=== PATIENT | male | born 1965 | race Caucasian/White ===

== ENCOUNTER 2017-11-03 12:22 | Outpatient (CLI) | payer BC ==
[2017-11-03 14:01] LABS: Bilirubin Negative (Negative); Blood, Urine Negative (Negative); Clarity CLEAR (Clear); Glucose, Urine (Dipstick) Negative (Negative); Leukocyte Small (Negative); Nitrite Negative (Negative); Protein, Urine (Dipstick) Negative (Neg-Trace); Specific Gravity, Urine 1.026 (1.002-1.036); Urobilinogen 0.2 mg/dL (0.2-1.0)
[2017-11-03 14:05] LABS: Bacteria/HPF None Seen HPF (None Seen); Hyaline Casts/LPF 4-6 HYALINE CAST LPF (0-3 Hyaline); Pathc Cast-AUWi Flag 0.43 (0-2.49); Squamous Epithelial 0-3 HPF (0-3); WBC/HPF 0-3 HPF (0-3)
== END 2017-11-03 12:23 | disposition home or self-care (01) ==
LOC: LABBT 12:22
PROVIDERS: ATTEND Orthopaedic Surgery
DX: Z01.818 Encounter for other preprocedural examination (principal); M16.12 Unilateral primary osteoarthritis, left hip
CPT/HCPCS: 81001; 87081; 93005; 93010

== ENCOUNTER 2017-11-03 15:30 | Inpatient (IN) | payer BC ==
[2017-11-15] MEDS ORDERED: CEFAZOLIN/Water 2 GM/20 ML SYRINGE ONE (07:51)
[2017-11-15] MEDS ORDERED: Sodium Chloride 0.9% 100 ML ONE (07:51)
[2017-11-15] MEDS ORDERED: Vancomycin HCl 1.5 GM in Sodium Chloride 0.9% 250 ML 300 ML IVPB SCH ×2 (08:00→21:00)
[2017-11-15] MEDS ORDERED: Midazolam HCl 2 mg/2 ml Vial ONE (08:59)
[2017-11-15] MEDS ORDERED: Fentanyl 100 MCG/2 ML VIAL ONE ×4 (08:59→12:19)
[2017-11-15] MEDS ORDERED: Dexamethasone 4 mg/ml Vial ONE (09:00)
[2017-11-15] MEDS ORDERED: Levofloxacin 500 mg/D5W 100 ml Premix Bag ONE (09:01)
[2017-11-15] MEDS ORDERED: Tranexamic Acid 1,000 MG in Sodium Chloride 0.9% 100 ML IVPB SCH (11:30)
[2017-11-15] MEDS ORDERED: Ketorolac Tromethamine 30 MG/ML VIAL ONE (11:38)
[2017-11-15] MEDS ORDERED: Promethazine HCl 25 MG/ML VIAL IM PRN ×2 (11:42→15:16)
[2017-11-15] MEDS ORDERED: HYDROmorphone 2 MG/ML VIAL SLOW IVP PRN (11:42)
[2017-11-15] MEDS ORDERED: Promethazine HCl 25 MG/ML VIAL SLOW IVP PRN (11:42)
[2017-11-15] MEDS ORDERED: Ondansetron HCl/PF 4 MG/2 ML Vial IVP PRN ×2 (11:42→15:16)
--- NOTE | 2017-11-15 12:27 | OP ---
DATE OF PROCEDURE: 11/15/2017 PREOPERATIVE DIAGNOSIS: Left hip avascular necrosis. POSTOPERATIVE DIAGNOSIS: Left hip avascular necrosis. PROCEDURE PERFORMED: Left total hip arthroplasty. STAFF: Tommy Traylor M.D. METER MAINTENANCE PERSON: Neil Dover PA-C. ANESTHESIA: Michel. The patient received a general intubation and a fascial block. ESTIMATED BLOOD LOSS: 200 mL. TOURNIQUET TIME: None. IMPLANTS: A Jessenia size Accolade TMZF size 5 130 degree neck angle, Trident 10 degree poly, 36 mm, a Tritanium hemispherical cluster shell 58 mm, and a Biolox ceramic 36 mm -5 head. ANTIBIOTICS: Ancef 2 grams, vancomycin 1.5 grams, Levaquin 500 mg, TXA 1 gram. COMPLICATIONS: None. HISTORY OF PRESENT ILLNESS: Mr. Cleaning is a 52-year-old male presenting with left hip pain for over a year. The patient did have a history of previous drinking. The patient has history of high blood pressure. I discussed with patient the risks and benefits of left total hip arthroplasty to include pain, scar, bleeding, infection, damage to vital structures, decreased range of motion or strength, f ailure of procedure, lengthening, rotation, damage to vital structures, need for further surgeries. The patient understood these risks and benefits and would like to proceed. PROCEDURE IN DETAIL: Timeout was performed designating the patient's left lower extremity as the ope rative site based on sight, consents, markings. After completion of timeout, the patient was placed in lateral decubitus position with bony points well padded. The patient's left extremity was prepped and draped in sterile fashion. The patient had a lateral incision made down through skin and IT ban d. Gluteus medius and minimus were cut in line to expose the capsule, T'd and excised the capsule, e xposed the head and dislocated it, had a femoral neck cut the base of our guide after removing some o steophytes. Removed about half fingerbreadth above the lesser trochanter. We moved our attention to the acetabulum, removed osteophytes, found the fovea, started reaming and reamed up to a 57, trialed at 58, felt it would be a good overall alignment. We removed some osteophytes anteriorly to help wi th our positioning and no impingement. We then placed our 58 mm hemispherical cup. We had curetted some cyst which we bone grafted anterior superiorly. After completion of this, we liked the overall alignment of the cup. We placed a 10 mm Trident poly a little posterior superior in angulation, joselin ered into place, made sure no soft tissues was in place. We then moved to the femur. We broached up to size 5, trialed a 5 and a -5 given the patient has a plan for a ceramic head. We then removed, p laced a -5 ceramic head with a size 5 Jessenia stem, reduced into place, reduced the hip. I liked the overall alignment and position. We then placed #2 Vicryls to close the gluteus medius to itself glu teus minimus. We closed the gluteus medius with a couple sutures through the bone as well as soft ti ssue [id number]. We then washed. We then closed the IT band with [id number], we closed the IT band with #2 Quill, 0 Quill, 2-0 Quill, and glue. The patient will be followed up with [place] protocol, will be weightbearing as tolerated. Camille SHARP.
[2017-11-15] MEDS ORDERED: Lidocaine 1% PF 5 ML VIAL ONE (12:47)
[2017-11-15] MEDS ORDERED: Ondansetron HCl/PF 4 MG/2 ML Vial ONE (12:47)
[2017-11-15] MEDS ORDERED: PROPOFOL 200 MG/20 ML VIAL ONE (12:47)
[2017-11-15] MEDS ORDERED: Bupivacaine HCl 0.5%/Epinephrine 1:200,000/PF 30 ml Vial ONE (13:02)
--- NOTE | 2017-11-15 14:04 | RAD ---
LEFT HIP TWO VIEWS: 11/15/2017 HISTORY: Postop total hip replacement. COMPARISON: 10/23/2016 FINDINGS: There have been interval post surgical changes related to placement of a left total hip prosthesis. No hardware complications are seen. No fracture or dislocation is seen. There is a lytic and sclero tic appearance of the superior aspect of the right femoral head, which may be related to osteonecrosi s. There is joint space narrowing seen on the right. Calcifications again overly the right hemipelv is, likely related to phleboliths. IMPRESSION: 1. Osteonecrosis involving the right femoral head. 2. Left total hip prosthesis. POS: [facility]
[2017-11-15] MEDS ORDERED: Ketorolac Tromethamine 30 MG/ML VIAL IVP PRN (15:16)
[2017-11-15] MEDS ORDERED: Acetaminophen 325 MG TAB PO PRN (15:16)
[2017-11-15] MEDS ORDERED: HYDROcodone/Acetaminophen 10/325 mg Tablet PO PRN ×2 (15:16)
[2017-11-15] MEDS ORDERED: Zolpidem Tartrate 5 MG TAB PO PRN (15:16)
[2017-11-15] MEDS ORDERED: traMADol HCl 50 MG TAB PO PRN (15:16)
[2017-11-15] MEDS ORDERED: Fentanyl 100 MCG/2 ML VIAL SLOW IVP PRN ×2 (15:16)
[2017-11-15] MEDS ORDERED: diphenhydrAMINE 25 MG CAP PO PRN (15:16)
[2017-11-15] MEDS: Sodium Chloride 0.9% 1,000 ML IV SCH (16:16)
[2017-11-15] MEDS ORDERED: hydrALAZINE 20 MG/ML VIAL SLOW IVP PRN (17:02)
[2017-11-15] MEDS ORDERED: Cepastat Lozenges 1 LOZ PO PRN (17:04)
[2017-11-15] MEDS: CEFAZOLIN/Water 2 GM/20 ML SYRINGE SLOW IVP SCH ×2 (17:23→23:19)
--- NOTE | 2017-11-15 17:51 | CON ---
DATE OF CONSULTATION: 11/15/2017 PRIMARY CARE PROVIDER: Norman Zarco MD CHIEF COMPLAINT: Management of medical comorbidities. HISTORY OF PRESENT ILLNESS: Mr. Cleaning is a pleasant 52-year-old gentleman who was seen at [facility] on 11/15/2017 for management of medical comorbidities following left hip art hroplasty. He is currently lethargic. He reports pain over the left hip. He denies any fevers or chills. He d enies any chest pain or shortness of breath. He denies any nausea or vomiting. He denies any abdomi nal pain. He reports feeling hungry and thirsty. He also reports having a sore throat following the surgery. REVIEW OF SYSTEM: All other systems reviewed and found to be negative. PAST MEDICAL HISTORY: Significant for arthritis, gout, hypertension, and dyslipidemia. PAST SURGICAL HISTORY: He had cataract surgery in his left eye. FAMILY HISTORY: Significant for diabetes mellitus and hypertension in his mother. SOCIAL HISTORY: No tobacco use or recreational drug use. Occasional alcohol use. ALLERGIES: No known drug allergies. HOME MEDICATIONS: Tylenol Arthritis 650 mg 2 tablets 2 times a day, allopurinol 100 mg at bedtime, a tenolol 50 mg at bedtime, diclofenac sodium 75 mg 2 times a day, lisinopril 20 mg at bedtime, lovasta tin 40 mg every evening. PHYSICAL EXAMINATION: GENERAL: Mr. Cleaning is awake and alert, not in acute distress. VITAL SIGNS: Blood pressure is 120/72, pulse is 79, his breathing at rate of 18, and saturating in t he 90s on room air. He is afebrile. EYES: No scleral icterus. No conjunctival pallor. Left eye has light perception only. ENT: Moist mucosal membranes, no oropharyngeal erythema or exudates. NECK: Supple, nontender, trachea midline. RESPIRATORY: Accessory muscles of breathing are not active. Chest wall movements are symmetric bila terally. LUNGS: Clear to auscultation, without wheeze, rhonchi or crepitations. CARDIOVASCULAR: S1 and S2 are heard, regular. Peripheral pulses palpable. No carotid bruit, no per icardial rub. ABDOMEN: Soft, nontender, bowel sounds heard. NEUROLOGIC: Within the limitations of light perception only in the left eye. Cranial nerves II-XII are intact. Deep tendon reflexes are 2+. MUSCULOSKELETAL: Status post left hip surgery. SKIN: No rashes or subcutaneous nodules. LYMPHATIC: No cervical lymphadenopathy. PSYCHIATRIC: Normal mood, normal affect, patient is oriented to person and place, not to time. LABORATORY DATA: Mr. Ronquillos labs and investigations were reviewed. On 11/14/2017, he had macrocyt ic anemia with hemoglobin 13.3, normal white count, normal platelet count. INR 1.0 and an unremarkab le Chem-7. Urinalysis was negative. ASSESSMENT AND PLAN: Mr. Cleaning is a pleasant 52-year-old gentleman who was seen at [facility] for management of medical comorbidities. His problem list includes: 1. Hypertension: Currently controlled and at goal. Resume home medications, including beta nito and ALE inhibitor. Monitor vital signs, titrate antihypertensives as needed. Start p.r.n. IV hydra lazine for blood pressure spikes. 2. Dyslipidemia: Continue statin. 3. Gout: Continue allopurinol, stable. 4. Arthritis: Status post left hip total arthroplasty. 5. Deep venous thrombosis prophylaxis and pain management per Orthopedic Service. Many thanks for allowing me to participate in your patient's care. Please feel free to contact me wi th any questions or concerns. LEVEL OF RISK: Moderate. LEVEL OF COMPLEXITY: Moderate.
[2017-11-15] MEDS: Atorvastatin Calcium 10 MG TAB PO SCH (18:49)
[2017-11-15] MEDS: Lisinopril 20 MG TAB PO SCH (20:17)
[2017-11-15] MEDS: Aspirin 325 MG TAB PO SCH (20:17)
[2017-11-15] MEDS: Atenolol 50 MG TAB PO SCH (20:17)
[2017-11-15] MEDS: Allopurinol 100 MG TAB PO SCH (20:17)
[2017-11-16] MEDS: Sodium Chloride 0.9% 1,000 ML IV SCH (03:43)
[2017-11-16 04:54] LABS: Hemoglobin 10.5 g/dL (14.0-18.0); Mean Corpuscular HGB CONC 34.5 g/dL (32.0-36.0); Mean Corpuscular Hemoglobin 33.2 pg (27.0-31.0); Mean Corpuscular Volume 96.2 fL (78.0-98.0); Mean Platelet Volume 6.1 fL (7.4-10.4); Platelet Count 250 thou/uL (130-400); RBC Distribution Width 11.8 % (11.5-14.5); Red Blood Cell (RBC) Count 3.15 mill/uL (4.70-6.10); White Blood Cell (WBC) Count 18.5 thou/uL (4.8-10.8)
[2017-11-16] MEDS: Ferrous Gluconate 324 MG TAB PO SCH (08:22)
[2017-11-16] MEDS: Multivitamin W/ Minerals 1 TAB PO SCH (08:22)
[2017-11-16] MEDS: Senokot S 8.6-50 MG TAB PO SCH ×2 (08:23→21:08)
[2017-11-16] MEDS: Aspirin 325 MG TAB PO SCH ×2 (08:23→21:09)
--- NOTE | 2017-11-16 12:04 | PDOC.PN ---
- Subjective Encounter Start Date: 11/16/17 Encounter Start Time: 09:40 Pt seen for followup re: hypertension. Denies chest pain, shortness of breath, fevers or chills. c/o On and off L hip pain. - Objective MAR Reviewed: Yes Vital Signs & Weight: Vital Signs (12 hours) Temp Pulse Resp BP Pulse Ox 11/16/17 08:57 97.7 F 66 24 H 114/71 98 11/16/17 08:00 97.7 F 66 24 H 11/16/17 04:00 99.6 F 78 16 99/60 98 Weight Weight 4 oz I&O: 11/15/17 11/16/17 11/17/17 06:59 06:59 06:59 Intake Total 1100 Output Total 2250 Balance -1150 Result Diagrams: 11/16/17 04:28 Additional Labs: Labs reviewed by me Phys Exam - Physical Examination Constitutional: NAD HEENT: moist MMs Neck: supple Respiratory: clear to auscultation bilateral Cardiovascular: RRR Gastrointestinal: soft Neurological: moves all 4 limbs Psychiatric: normal affect Dx/Plan (1) HTN (hypertension) Code(s): I10 - ESSENTIAL (PRIMARY) HYPERTENSION Status: Chronic Comment: controlled and at goal (2) Dyslipidemia Code(s): E78.5 - HYPERLIPIDEMIA, UNSPECIFIED Status: Chronic Comment: continue statin (3) Gout Code(s): M10.9 - GOUT, UNSPECIFIED Status: Chronic Comment: continue allopurinol - Plan * . Review of Systems - Review of Systems Constitutional: negative: fever, chills, sweats, weakness, malaise Respiratory: negative: Cough, Shortness of Breath, SOB with Excertion, Pleuritic Pain, Wheezing Cardiovascular: negative: chest pain, palpitations, orthopnea, paroxysmal nocturnal dyspnea, edema, light headedness Musculoskeletal: Other (Hip pain) - Medications/Allergies Allergies/Adverse Reactions: Allergies Allergy/AdvReac Type Severity Reaction Status Date / Time bee stings Allergy severe Uncoded 11/03/17 12:58 swelling Medications: Current Medications Acetaminophen (Tylenol) 650 mg PO Q4H PRN PRN Reason: MASTERS/ T > 101F; Mild Pain (1-3) Last Admin: 11/16/17 08:29 Dose: 650 mg Hydrocodone Bitart/Acetaminophen ([place] 10/325) 1 tab PO Q4H PRN PRN Reason: Moderate Pain (4-6) Hydrocodone Bitart/Acetaminophen ([place] 10/325) 2 tab PO Q4H PRN PRN Reason: Severe Pain (7-10) Allopurinol (Zyloprim) [address] [facility] Last Admin: 11/15/17 20:17 Dose: 100 mg Aspirin (Aspirin) 325 mg PO BID [facility] Last Admin: 11/16/17 08:23 Dose: 325 mg Atenolol (Tenormin) [address] [facility] Last Admin: 11/15/17 20:17 Dose: 50 mg Atorvastatin Calcium (Lipitor) 10 mg PO [facility] Last Admin: 11/15/17 18:49 Dose: 10 mg Diphenhydramine HCl (Benadryl) 25 mg PO Q6H PRN PRN Reason: Itching Fentanyl (Sublimaze) 50 mcg SLOW IVP Q30MIN PRN PRN Reason: Moderate Pain (4-6) Fentanyl (Sublimaze) 100 mcg SLOW IVP Q1H PRN PRN Reason: Severe Pain (7-10) Ferrous Gluconate (Fergon) 324 mg PO BID-[facility] Last Admin: 11/16/17 08:22 Dose: 324 mg Hydralazine HCl (Apresoline) 10 mg SLOW IVP Q6H PRN PRN Reason: SBP Greater Than 170 Hydrocodone Bitartrate/Ibuprofen (Vicoprofen 7.5/200) 1 tab PO Q4H PRN PRN Reason: Mild Pain (1-3) Hydrocodone Bitartrate/Ibuprofen (Vicoprofen 7.5/200) 2 tab PO Q4H PRN PRN Reason: Moderate Pain (4-6) Sodium Chloride (Normal Saline 0.9%) 1,000 mls @ 100 mls/hr IV .Q10H [facility] Last Admin: 11/16/17 03:43 Dose: Not Given Iron/Minerals/Multivitamins (Theragran M) 1 tab PO DAILY [facility] Last Admin: 11/16/17 08:22 Dose: 1 tab Ketorolac Tromethamine (Toradol) 30 mg IVP Q8H PRN PRN Reason: Mild Pain (1-3) Stop: 11/17/17 15:17 Lisinopril (Zestril) [address] [facility] Last Admin: 11/15/17 20:17 Dose: 20 mg Ondansetron HCl (Zofran) 4 mg IVP Q6H PRN PRN Reason: Nausea/Vomiting Promethazine HCl (Phenergan) 12.5 mg IM Q4H PRN PRN Reason: Nausea/Vomiting Senna/Docusate Sodium (Senokot S) 2 tab PO BID [facility] Last Admin: 11/16/17 08:23 Dose: 2 tab Sodium Chloride (Flush - Normal Saline) 10 ml IVF PRN PRN PRN Reason: Saline Flush Throat Lozenges (Cepastat Lozenges) 1 siobhan PO Q2H PRN PRN Reason: Sore Throat Tramadol HCl (Ultram) 100 mg PO Q6H PRN PRN Reason: Mild Pain (1-3) Zolpidem Tartrate (Ambien) 5 mg PO HSPRN PRN PRN Reason: Insomnia
[2017-11-16 12:10] VITALS: BMI 34.8
[2017-11-16] MEDS: Allopurinol 100 MG TAB PO SCH (21:08)
[2017-11-16] MEDS: Atenolol 50 MG TAB PO SCH (21:08)
[2017-11-16] MEDS: Lisinopril 20 MG TAB PO SCH (21:08)
[2017-11-17] MEDS: Sodium Chloride 0.9% 1,000 ML IV SCH ×3 (02:52→07:35)
[2017-11-17] MEDS: Atorvastatin Calcium 10 MG TAB PO SCH (02:53)
[2017-11-17] MEDS: Ferrous Gluconate 324 MG TAB PO SCH ×2 (02:53→08:26)
[2017-11-17 05:41] LABS: Hemoglobin 10.2 g/dL (14.0-18.0); Mean Corpuscular HGB CONC 32.7 g/dL (32.0-36.0); Mean Corpuscular Hemoglobin 32.4 pg (27.0-31.0); Mean Corpuscular Volume 99.2 fL (78.0-98.0); Mean Platelet Volume 6.2 fL (7.4-10.4); Platelet Count 216 thou/uL (130-400); RBC Distribution Width 11.9 % (11.5-14.5); Red Blood Cell (RBC) Count 3.14 mill/uL (4.70-6.10); White Blood Cell (WBC) Count 14.4 thou/uL (4.8-10.8)
[2017-11-17] MEDS: Aspirin 325 MG TAB PO SCH (08:26)
[2017-11-17] MEDS: Multivitamin W/ Minerals 1 TAB PO SCH (08:27)
[2017-11-17] MEDS: Senokot S 8.6-50 MG TAB PO SCH (08:27)
[2017-11-17 12:06] VITALS: BP 102/52; TEMP 97.1
--- NOTE | 2017-11-17 14:55 | PDOC.PN ---
- Subjective Encounter Start Date: 11/17/17 Encounter Start Time: 09:20 Pt seen for followup re: hypertension. Denies chest pain, shortness of breath, chills or fevers. - Objective MAR Reviewed: Yes Vital Signs & Weight: Vital Signs (12 hours) Temp Pulse Resp BP BP Pulse Ox 11/17/17 12:05 97.1 F L 75 16 102/52 L 96 11/17/17 08:00 98.4 F 65 16 99 11/17/17 07:30 98.4 F 65 16 99/60 99 11/17/17 03:50 97.8 F 73 16 99/54 L 97 Weight Admit Weight 250 lb Weight 250 lb I&O: 11/16/17 11/17/17 11/18/17 06:59 06:59 06:59 Intake Total 1100 1330 Output Total 2250 700 Balance -1150 630 Result Diagrams: 11/17/17 05:15 Additional Labs: Labs reviewed by me Phys Exam - Physical Examination Constitutional: NAD HEENT: moist MMs Neck: supple Respiratory: clear to auscultation bilateral Cardiovascular: RRR Gastrointestinal: soft s/p L hip surgery Psychiatric: normal affect Dx/Plan (1) HTN (hypertension) Code(s): I10 - ESSENTIAL (PRIMARY) HYPERTENSION Status: Chronic Comment: Stable, controlled and at goal (2) Dyslipidemia Code(s): E78.5 - HYPERLIPIDEMIA, UNSPECIFIED Status: Chronic Comment: on statin (3) Gout Code(s): M10.9 - GOUT, UNSPECIFIED Status: Chronic Comment: stable, on allopurinol - Plan * . Pt doing well in terms of medical comorbidities. Plan to discharge pt noted, will sign off. Review of Systems - Review of Systems Respiratory: negative: Cough, Shortness of Breath, SOB with Excertion, Pleuritic Pain, Wheezing Cardiovascular: negative: chest pain, palpitations, orthopnea, paroxysmal nocturnal dyspnea, edema, light headedness Gastrointestinal: negative: Nausea, Vomiting, Abdominal Pain, Diarrhea, Constipation, Melena, Hematochezia - Medications/Allergies Allergies/Adverse Reactions: Allergies Allergy/AdvReac Type Severity Reaction Status Date / Time bee stings Allergy severe Uncoded 11/03/17 12:58 swelling
== END 2017-11-17 13:48 | disposition home or self-care (01) | DRG 470 ==
LOC: SJJU 11-15 07:14 → SURG B 11-15 13:30
PROVIDERS: ADMIT Orthopaedic Surgery; ATTEND Orthopaedic Surgery
PROC: 0SRB0JZ Replacement of Left Hip Joint with Synthetic Substitute, Open Approach (ICD-10-PCS; principal; 2017-11-15)
DX: M87.852 Other osteonecrosis, left femur (principal); M16.12 Unilateral primary osteoarthritis, left hip; I10 Essential (primary) hypertension; E78.5 Hyperlipidemia, unspecified; Z79.899 Other long term (current) drug therapy; M10.9 Gout, unspecified; Z91.030 Bee allergy status
CPT/HCPCS: 36415; 85027; G8978-GP-CJ; G8979-GP-CI; G8987-GO-CK; G8988-GO-CI; J1100; J1885; J1956; J2250; J3010; J3370; J7050

== ENCOUNTER 2017-11-14 10:35 | Outpatient (CLI) | payer BC ==
[2017-11-14 11:17] LABS: Hemoglobin 13.3 g/dL (14.0-18.0); Mean Corpuscular Hemoglobin 33.3 pg (27.0-31.0); Mean Corpuscular Volume 97.9 fl (80.0-94.0); Mean Platelet Volume 6.4 fL (7.4-10.4); Platelet Count 276 thou/uL (130-400); Red Blood Cell (RBC) Count 4.01 mill/uL (4.70-6.10); White Blood Cell (WBC) Count 9.5 thou/uL (4.8-10.8)
[2017-11-14 11:22] LABS: Prothrombin Time 13.8 SEC (12.0-14.7)
[2017-11-14 11:52] LABS: Anion Gap 12 mmol/L (10-20); BUN (Urea Nitrogen) 20 mg/dL (8.4-25.7); Calc. Creatinine Clearance 0 mL/min (70-130); Calcium 9.5 mg/dL (7.8-10.44); Carbon Dioxide 28 mmol/L (22-29); Chloride 103 mmol/L (98-107); Estimated GFR-MDRD Greater than 90; Glucose 115 mg/dL (70-105); Potassium 4.2 mmol/L (3.5-5.1); Sodium 139 mmol/L (136-145)
[2017-11-14 12:20] LABS: Bilirubin Negative (Negative); Blood, Urine Negative (Negative); Clarity CLEAR (Clear); Glucose, Urine (Dipstick) Negative (Negative); Leukocyte Negative (Negative); Nitrite Negative (Negative); Protein, Urine (Dipstick) Negative (Neg-Trace); Specific Gravity, Urine 1.025 (1.002-1.036); Urobilinogen 0.2 mg/dL (0.2-1.0)
[2017-11-14 12:25] LABS: Bacteria/HPF None Seen HPF (None Seen); Hyaline Casts/LPF 0-3 HYALINE CAST LPF (0-3 Hyaline); Pathc Cast-AUWi Flag 0.14 (0-2.49); Squamous Epithelial None Seen HPF (0-3); WBC/HPF None Seen HPF (0-3)
== END 2017-11-14 10:36 | disposition home or self-care (01) ==
LOC: LABBT 10:35
PROVIDERS: ATTEND Orthopaedic Surgery
DX: Z01.818 Encounter for other preprocedural examination (principal); M16.11 Unilateral primary osteoarthritis, right hip
CPT/HCPCS: 80048; 81001; 85027; 85610; 86850; 86900; 86901